=== PATIENT | female | born 1970 | race African-American/Black ===

== ENCOUNTER 2020-06-04 08:07 | Outpatient (REF) | payer OTHER, SELFPAY ==
[2020-06-04 10:14] LABS: Hematocrit 39.2 % (37-47); Hemoglobin 12.7 g/dl (12.0-16.0); Mean Corpuscular HGB Conc 32.4 g/dl (31.0-35.0); Mean Corpuscular Volume 83.4 fL (80-98); Mean Platelet Volume 11.6 fL (9.4-12.3); Platelet Count 197 X10*3/uL (160-400); Red Cell Distribution Width 13.9 % (11.0-16.0); White Blood Count 6.9 X10*3/uL (4.8-10.8)
[2020-06-04 10:57] LABS: Color Urine YELLOW; Glucose Urine UA NEG (NEG); Leukocyte Esterase Urine NEG (NEG); Nitrite Urine NEG (NEG); PH 5.5 (5.0-8.0); Specific Gravity - Urine >= 1.030 (1.005-1.025); Urine Blood 1+ (NEG); Urine Ketones NEG (NEG); Urine Protein NEG (NEG-TRACE)
[2020-06-04 10:58] LABS: Appearance Urine CLEAR
[2020-06-04 11:02] LABS: Alanine Aminotransferase 21 U/L (0-31); Albumin Level 4.1 g/dL (3.5-5.0); Alkaline Phosphatase 74 U/L (39-117); Anion Gap 13 (12-20); Aspartate Amino Transferase 19 U/L (5-31); Bilirubin Total 0.4 mg/dL (0.0-1.0); Blood Urea Nitrogen 17 mg/dL (9-16); Calcium 9.1 mg/dL (8.4-10.2); Carbon Dioxide 26 mmol/L (22-29); Chloride 104 mmol/L (96-108); Cholesterol 229 mg/dL; Estimated Glomerular Filt Rate > 60; Glucose Fasting 83 mg/dL (60-99); HDL Cholesterol 54 mg/dL; LDL Cholesterol Calculated 157 mg/dl; Potassium 4.1 mmol/l (3.3-5.1); Sodium 139 mmol/L (135-145); Total Protein 7.2 g/dL (6.5-8.0); Triglycerides 91 mg/dL
[2020-06-04 11:19] LABS: RBC Urine 0-2 /HPF (0); Squamous Epithelial Cell Urine 2+ /LPF; WBC Urine 0-2 /HPF (0-4)
[2020-06-04 11:23] LABS: TSH reflex Free T4 1.47 mIU/mL (0.32-4.0)
== END 2020-06-04 08:08 | disposition home or self-care (01) ==
LOC: HO.10HDL 08:07
PROVIDERS: Visit Provider Internal Medicine
DX: Z00.00 Encounter for general adult medical examination without abnormal findings (principal); E03.9 Hypothyroidism, unspecified
CPT/HCPCS: 36415; 80053; 80061; 81001; 84443; 85027

== ENCOUNTER 2020-12-19 14:34 | Outpatient (REF) | payer OTHER, SELFPAY ==
--- NOTE | ~2020-12-19 | XR_ITS ---
EXAMINATION: XR LUMBAR SPINE AND BILATERAL HIPS CLINICAL INFORMATION: Sciatica. COMPARISON: Lumbar spine of 03/30/2017. TECHNIQUE: 3 views lumbar spine, 2 view right hip, and 2 views left hip. FINDINGS: Lumbar Spine: 3 views of the lumbar spine demonstrate 5 [id number] lumbar vertebra. There is severe narrowing of the L5-S1 disc space as well as moderate narrowing of the L4-L5 disc space. There is a grade 2 spondylolisthesis at L5-S1 with marginal sclerosis and spurring. There appears to be a pars defect at L5. Pedicles are intact. No significant degenerative change of the sacroiliac joints is seen. There appears to be facet arthropathy at the L5-S1 level. Right Hip: 2 views of the right hip do not demonstrate any evidence of acute fracture or dislocation. Hip joint space is maintained without significant spurring appreciated. Femoral head unremarkable. Left Hip: 2 views of the left hip do not demonstrate any evidence of acute fracture or dislocation. There is some spurring about the greater trochanter which may be related to calcific tendinitis. No femoral head abnormality is appreciated. XR/XR hip RT min 2V IMPRESSION: Lumbar spondylosis L4-S1 with grade 2 spondylolisthesis L5-S1 and L5 pars defect. No significant right or left hip bony abnormality appreciated. Left hip greater trochanter spurring.
--- NOTE | ~2020-12-19 | XR_ITS ---
EXAMINATION: XR LUMBAR SPINE AND BILATERAL HIPS CLINICAL INFORMATION: Sciatica. COMPARISON: Lumbar spine of 03/30/2017. TECHNIQUE: 3 views lumbar spine, 2 view right hip, and 2 views left hip. FINDINGS: Lumbar Spine: 3 views of the lumbar spine demonstrate 5 [id number] lumbar vertebra. There is severe narrowing of the L5-S1 disc space as well as moderate narrowing of the L4-L5 disc space. There is a grade 2 spondylolisthesis at L5-S1 with marginal sclerosis and spurring. There appears to be a pars defect at L5. Pedicles are intact. No significant degenerative change of the sacroiliac joints is seen. There appears to be facet arthropathy at the L5-S1 level. Right Hip: 2 views of the right hip do not demonstrate any evidence of acute fracture or dislocation. Hip joint space is maintained without significant spurring appreciated. Femoral head unremarkable. Left Hip: 2 views of the left hip do not demonstrate any evidence of acute fracture or dislocation. There is some spurring about the greater trochanter which may be related to calcific tendinitis. No femoral head abnormality is appreciated. XR/XR lumbar spine 2-3V IMPRESSION: Lumbar spondylosis L4-S1 with grade 2 spondylolisthesis L5-S1 and L5 pars defect. No significant right or left hip bony abnormality appreciated. Left hip greater trochanter spurring.
--- NOTE | ~2020-12-19 | XR_ITS ---
EXAMINATION: XR LUMBAR SPINE AND BILATERAL HIPS CLINICAL INFORMATION: Sciatica. COMPARISON: Lumbar spine of 03/30/2017. TECHNIQUE: 3 views lumbar spine, 2 view right hip, and 2 views left hip. FINDINGS: Lumbar Spine: 3 views of the lumbar spine demonstrate 5 [id number] lumbar vertebra. There is severe narrowing of the L5-S1 disc space as well as moderate narrowing of the L4-L5 disc space. There is a grade 2 spondylolisthesis at L5-S1 with marginal sclerosis and spurring. There appears to be a pars defect at L5. Pedicles are intact. No significant degenerative change of the sacroiliac joints is seen. There appears to be facet arthropathy at the L5-S1 level. Right Hip: 2 views of the right hip do not demonstrate any evidence of acute fracture or dislocation. Hip joint space is maintained without significant spurring appreciated. Femoral head unremarkable. Left Hip: 2 views of the left hip do not demonstrate any evidence of acute fracture or dislocation. There is some spurring about the greater trochanter which may be related to calcific tendinitis. No femoral head abnormality is appreciated. XR/XR hip LT min 2V IMPRESSION: Lumbar spondylosis L4-S1 with grade 2 spondylolisthesis L5-S1 and L5 pars defect. No significant right or left hip bony abnormality appreciated. Left hip greater trochanter spurring.
== END 2020-12-19 14:35 | disposition home or self-care (01) ==
LOC: HO.HMGCX 14:34
PROVIDERS: PCP Internal Medicine; Visit Provider Internal Medicine
DX: M54.30 Sciatica, unspecified side (principal); R07.9 Chest pain, unspecified; E78.5 Hyperlipidemia, unspecified
CPT/HCPCS: 72100; 73502

== ENCOUNTER → 2021-01-09 08:00 | Outpatient (REF) | payer OTHER, SELFPAY ==
--- NOTE | 2021-01-09 08:04 | CA_ITS ---
Acquisition Time: 2021-01-09 08:05:20 Total Exercise Time: 00:09:42 Test Indications: Chest Pain Medications: SYNTHROID Protocol: TRIXIE Max HR: 171 BPM 101% of Pred: 168 BPM Max BP: 180/090 mmHG Max Work Load: 11.2 METS Exercise stress test with exercise 9 min 42 sec of Trixie protocol, without anginal symptoms, without arrythmia, with normotensive response to exercise, with artifact at peak exercise, without EKG changes of ischemia at 29 sec recovery, later in recovery there is nonspecific ST abnormality in V 4-V6, not meeting criteria for ischemia. EKG tracings and report reviewed with Dr Flores Referred By: Hallie Sawyer Overread By: GABRIEL FRANCISCO
== END ==
LOC: HO.CARD 08:00
PROVIDERS: PCP Internal Medicine; Visit Provider Internal Medicine
DX: R07.9 Chest pain, unspecified (principal)
CPT/HCPCS: 93017

== ENCOUNTER 2021-03-18 13:27 | Outpatient (REF) | payer OTHER, SELFPAY ==
--- NOTE | ~2021-03-18 | US_ITS ---
EXAMINATION: US VENOUS ULTRASOUND WITH DOPPLER LOWER EXTREMITY, LEFT CLINICAL INFORMATION: Pain left lower extremity. Assess for occult DVT. COMPARISON: None TECHNIQUE: Ultrasound of the deep veins is performed from the hip to the calf with compression sonography and color and pulse Doppler assessment. Spectral analysis with color-flow imaging is performed. FINDINGS: There is normal venous compression and respiratory variation and augmented flow. The visualized common femoral vein, superficial femoral vein, profunda femoral vein, popliteal vein, and the trifurcation region shows no evidence of deep venous thrombosis. No popliteal fossa cyst. US/US venous duplex LE LT IMPRESSION: No DVT demonstrated in the left lower extremity.
== END 2021-03-18 13:28 | disposition home or self-care (01) ==
LOC: HO.US 13:27
PROVIDERS: Visit Provider Physician Assistant Medical
DX: M79.605 Pain in left leg (principal)
CPT/HCPCS: 93971

== ENCOUNTER 2021-12-27 09:03 | Outpatient (REF) | payer OTHER, SELFPAY ==
[2021-12-27 09:53] LABS: Hematocrit 40.7 % (37.0-47.0); Mean Corpuscular HGB Conc 31.9 g/dl (31.0-35.0); Mean Corpuscular Hemoglobin 26.1 pg (27.0-33.0); Mean Corpuscular Volume 81.6 fL (80.0-98.0); Mean Platelet Volume 10.9 fL (9.4-12.3); Platelet Count 231 X10*3/uL (160-400); Red Blood Count 4.99 X10*6/uL (4.20-5.50); Red Cell Distribution Width 14.8 % (11.0-16.0); White Blood Count 8.3 X10*3/uL (4.8-10.8)
[2021-12-27 10:22] LABS: Alanine Aminotransferase 22 U/L (0-31); Albumin Level 4.3 g/dL (3.5-5.0); Alkaline Phosphatase 104 U/L (39-117); Anion Gap 14 (12-20); Aspartate Amino Transferase 20 U/L (5-31); Bilirubin Total 0.6 mg/dL (0.0-1.0); Blood Urea Nitrogen 15 mg/dL (9-16); Calcium 9.6 mg/dL (8.4-10.2); Carbon Dioxide 28 mmol/L (22-29); Chloride 104 mmol/L (96-108); Cholesterol 270 mg/dL; Estimated Glomerular Filt Rate > 60; Glucose Fasting 86 mg/dL (60-99); HDL Cholesterol 61 mg/dL; LDL Cholesterol Calculated 192 mg/dl; Potassium 4.5 mmol/L (3.3-5.1); Sodium 141 mmol/L (135-145); Total Protein 7.8 g/dL (6.5-8.0); Triglycerides 89 mg/dL
[2021-12-27 10:45] LABS: TSH reflex Free T4 0.19 uIU/mL (0.32-4.0)
[2021-12-27 11:38] LABS: Free T4 (Free Thyroxine) 1.16 ng/dL (0.71-1.85)
== END 2021-12-27 09:04 | disposition home or self-care (01) ==
LOC: HO.LAB 09:03
PROVIDERS: PCP Hospitalist; Visit Provider Hospitalist
DX: E78.5 Hyperlipidemia, unspecified (principal); R53.83 Other fatigue; E03.9 Hypothyroidism, unspecified; M54.30 Sciatica, unspecified side
CPT/HCPCS: 36415; 80053; 80061; 84439; 84443; 85027

== ENCOUNTER 2023-01-15 14:55 | Emergency (ER) | payer OTHER, SELFPAY ==
--- NOTE | ~2023-01-15 | US_ITS ---
EXAMINATION: US VENOUS ULTRASOUND WITH DOPPLER LOWER EXTREMITY, LEFT CLINICAL INFORMATION: Left leg pain COMPARISON: None available. TECHNIQUE: Ultrasound of the deep veins is performed from the hip to the calf with compression sonography and color and pulse Doppler assessment. Spectral analysis with color-flow imaging is performed. FINDINGS: There is normal venous compression and respiratory variation and augmented flow. The visualized common femoral vein, superficial femoral vein, profunda femoral vein, popliteal vein, and the trifurcation region shows no evidence of deep venous thrombosis. There is a small Metz's cyst in the popliteal fossa measuring 3.7 x 0.8 x 1.1 cm. If the patient's symptoms persist, followup ultrasound in 5 days 7 days might be of value to exclude proximal propagation from a non-visualized calf vein. US/US venous duplex LE LT IMPRESSION: No DVT demonstrated in the left lower extremity. Metz's cyst in the popliteal fossa
[2023-01-15 15:04] VITALS: BP 147/66; PULSE 66; RESP 14; TEMP 36.7; O2SAT 98; BMI 25.7
--- NOTE | 2023-01-15 15:06 | ED_ITS ---
HPI - General Adult General Chief complaint: General Medical Stated complaint: dr sent over for an ultrasound Time Seen by Provider: 01/15/23 16:22 Source: patient Mode of arrival: ambulatory Limitations: no limitations History of Present Illness HPI narrative: 52-year-old female with history of sciatica, hypothyroidism, hyperlipidemia, plantar fasciitis presents to the ER for evaluation of left lower leg pain for the last 2 weeks. She denies any trauma or injury. She states the pain is behind her left knee and radiates to the lower leg and foot. She had some swelling of the foot a couple of weeks ago which self resolved. The pain is worse with mobility and when she is on her feet for several hours a day. 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 She denies any redness or warmth of the leg. No open wounds. No fever or chills. No chest pain or shortness of breath. Her primary care doctor sent her to the ER to rule out DVT. MD complaint: Left lower extremity pain Onset (ago): week(s) (2) Location: left and lower extremity Radiation: distal Severity: moderate Quality: aching Pain Consistency: intermittent Relieving factors: rest Associated symptoms: denies other symptoms Treatments prior to arrival: none Related Data Home Medications Medication Instructions Recorded Confirmed multivitamin (Daily Multi-Vitamin 1 tab PO DAILY 03/17/21 09/03/22 tablet) plant stanol lonny 450 mg tablet mg PO 03/17/21 09/03/22 (Cholest Off) Previous Rx's Medication Instructions Recorded Synthroid 125 mcg tablet 125 mcg PO DAILY #90 tabs 01/06/23 (levothyroxine) Allergies Allergy/AdvReac Type Severity Reaction Status Date / Time No Known Allergies Allergy Verified 09/03/22 15:54 Review of Systems Review of Systems: Yes all other systems are reviewed and are negative [facility] Past Medical History Medical History Alopecia Annual physical exam Chest pain Colon cancer screening Hyperlipidemia Hypothyroid Sciatica Surgical History No pertinent past surgical history Family History Family History Father No problems noted. Mother No problems noted. Social History Social History Housing: House Patient Tobacco Use Status: Never used Tobacco e-Cigarette/Vaping Use: Never Used Advance Directives: No Advance Directives Information Provided: Yes service: No Current occupational status: employed Current occupation: nursing Current occupational exposures/hazards: Yes Cognitive needs: No Hearing needs: No Vision needs: No Physical Exam ED Vital Signs: Vital Signs - 24 hr 01/15/23 15:04 Temperature 98.1 F Pulse Rate 66 Respiratory Rate 14 Blood Pressure 147/66 H Pulse Oximetry 98 Oxygen Delivery Method Room Air BMI result Body Mass Index 25.7 Appearance: Alert. Oriented X3. No acute distress. HEENT: Normal external inspection Neck: Normal inspection. Neck supple. CVS: Normal heart rate and rhythm. Pulses normal. Respiratory: No respiratory distress. Breath sounds normal. Skin: Skin warm and dry. Normal skin color. Normal skin turgor. No rashes. Extremities: No lower extremity edema. No joint swelling. there is soft tissue tenderness in the popliteal fossa without palpable masses, soft tissue tenderness of the proximal calf. No swelling in the lower leg, no erythema or warmth of the leg Neuro/psych: Oriented X 3. No motor deficit. No sensory deficit. CN II-XII intact. Normal speech and cognition. Course Course Course Narrative: This is an RME: Additional HPI, ROS, PE not included below will be deferred to primary provider. This is a 52-year-old female, with a past medical history of hyperthyroidism, presenting to the emergency department with a complaint of left calf pain x2 weeks. No trauma or injury. No recent travel, surgeries, hospitalizations, hx of DVT/PE. She does not smoke, not on estrogen. No other complaints or concerns at this time. Plan: US LLE Medical Decision Making Medical Decision Making MDM Narrative: 52-year-old female presents to the ER for evaluation of left lower leg pain and cramping for the last 2 weeks. pain is located behind the knee and radiates to the calf. PCP sent her to rule out DVT. She has no erythema or skin changes on examination. No swelling. Ultrasound today did not show any evidence of a blood clot but it did show a Metz's cyst. She was counseled on diagnosis and management as well as return precautions. She is stable for discharge home with plan to follow-up with her primary care doctor. Patient agrees with plan and all questions were answered Differential Diagnosis Differential Diagnoses: The differential diagnosis associated with the presentation includes cellulitis, DVT, muscle strain and spasm, electrolyte abnormality, dehydration, Metz's cyst Independent Interpretation I performed an independent interpretation of an: Ultrasound Interpretation: no blood clot appreciated, agree w/ radiology read Radiology Impression Discussion of test interpretation with radiology: I have reviewed the radiologist's reading. Radiologist Impression: EXAMINATION:? US VENOUS ULTRASOUND WITH DOPPLER LOWER EXTREMITY, LEFT CLINICAL INFORMATION:? Left leg pain COMPARISON:? None available. TECHNIQUE: Ultrasound of the deep veins is performed from the hip to the calf with compression sonography and color and pulse Doppler assessment. Spectral analysis with color-flow imaging is performed. FINDINGS: There is normal venous compression and respiratory variation and augmented flow. The visualized common femoral vein, superficial femoral vein, profunda femoral vein, popliteal vein, and the trifurcation region shows no evidence of deep venous thrombosis. ? There is a small Metz's cyst in the popliteal fossa measuring 3.7 x 0.8 x 1.1 cm. If the patient's symptoms persist, followup ultrasound in 5 days 7 days might be of value to exclude proximal propagation from a non-visualized calf vein. US/US venous duplex LE LT IMPRESSION: No DVT demonstrated in the left lower extremity. ? Metz's cyst in the popliteal fossa External Record Review External record reviewed: Outpatient record and Prior outpatient labs Prescription Management I considered prescription management with: Pain Medication Chronic Conditions Patient?s care impacted by: Other (plantar fascititis) Critical Care Time Critical Care Time Critical Care Time: No Discharge Plan Discharge Clinical Impression: Metz's cyst Patient Disposition: Home, Self-Care Instructions: Bakers Cyst (ED) Additional Instructions: Your ultrasound today did not show any evidence of a blood clot Wear the provided LENNY wrap as needed for compression and support Elevate you leg when possible Use ice as needed for pain Follow up with your doctor for further managment If you develop new or worsening symptoms call 911 or come back to the ER for further evaluation. Prescriptions: No Action levothyroxine [Synthroid] 125 mcg tablet 125 mcg PO DAILY Qty: 90 0RF multivitamin [Daily Multi-Vitamin] Tablet 1 tab PO DAILY Cholest Off 450 mg tablet PO Interventions: ED Discharge Assessment Last Done: 01/15/23 17:00 Discharge Date/Time: 01/15/23 17:02
== END 2023-01-15 17:02 | disposition home or self-care (01) ==
PROVIDERS: Emergency Provider Emergency Medicine
DX: M71.22 Synovial cyst of popliteal space [Baker], left knee (principal); R60.0 Localized edema
CPT/HCPCS: 93971; 99282; 99284